=== PATIENT | female | born 1965 | race Caucasian/White ===

== ENCOUNTER 2019-01-18 06:12 | Emergency (ER) | payer BC ==
--- NOTE | 2019-01-18 07:00 | EDM.PDOC ---
ED HPI GENERAL MEDICAL PROBLEM - General Chief Complaint: Chest Pain Stated Complaint: UNCOMFORTABLE ARMS AND CHEST Time Seen by Provider: 01/18/19 06:48 Source of Information: Reports: Patient History Limitations: Reports: No Limitations - History of Present Illness INITIAL COMMENTS - FREE TEXT/NARRATIVE: 53-year-old female with onset of "not feeling well" yesterday morning when she awoke. She reports that she had a slight feeling of indigestion in that she was burping at the time and had malaise. She had no pain at that point. Later on that afternoon she developed pain in her left chest and shoulder and that pain seemed to come and go through the afternoon and was not associated with any activity or any inciting event that she was aware of. It was a burning and aching type pain that was into her left shoulder and left upper back as well. Last night at approximately 10 to 10:30 PM when she was going to bed she had pain that was a burning and aching pain across her upper back and shoulders posteriorly. She also had pain in her left chest and left upper arm. The pain seemed to improve but did not go away and she was able to go to sleep and woke up intermittently through the night with worsenings of pain but was able to go back to sleep each time and then at 5 AM she awoke with pain in her left chest and left shoulder that was worse than before again (she rated it as a 6/10) and that discomfort has been at that level since 5 AM. No nausea or vomiting. No difficulty breathing. She also reports intermittent jaw pain that has been coming and going for some time. No cough. No known will be breathing no abdominal pain. She reports that the pain has been continually present in some form since 10:30 PM last night. There are no other associated signs or symptoms. There are no other modifying factors. 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) mid chest and left arm Pain Score (Numeric/FACES): 6 - Related Data Allergies Allergy/AdvReac Type Severity Reaction Status Date / Time No Known Allergies Allergy Verified 01/18/19 06:34 Home Meds: Home Meds Levothyroxine Sodium [Synthroid] 100 mcg PO DAILY 01/18/19 [History] Omeprazole 40 mg PO ACBREAKFAST #30 cap.sr 01/18/19 [Rx] Past Medical History Endocrine/Metabolic History: Reports: Hypothyroidism - Past Surgical History Endocrine Surgical History: Reports: Thyroidectomy Social & Family History - Family History Cardiac: Reports: Bypass (Father with coronary artery bypass surgery in his 70s) , CAD (Uncle with heart disease beginning in his 50s) - Tobacco Use Smoking Status *Q: Never Smoker - Caffeine Use Caffeine Use: Reports: Tea - Recreational Drug Use Recreational Drug Use: No - Living Situation & Occupation Living situation: Reports: (She is here with her ) 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 No dizziness now.) , Headache (Off-and-on. No headache now.) Hematologic/Lymphatic: Reports: No Symptoms Immunologic: Reports: No Symptoms ED EXAM, GENERAL - Physical Exam Exam: See Below Exam Limited By: No Limitations General Appearance: Alert, WD/WN, Anxious, Mild Distress Eye Exam: Bilateral Eye: EOMI, Normal Inspection, PERRL Ears: Normal External Exam, Hearing Grossly Normal Nose: Normal Inspection, Normal Mucosa, No Blood Throat/Mouth: Normal Inspection, Normal Oropharynx, Normal Voice, No Airway Compromise Head: Atraumatic, Normocephalic Neck: Normal Inspection, Supple, Non-Tender, Full Range of Motion Respiratory/Chest: No Respiratory Distress, Lungs Clear, Normal Breath Sounds, No Accessory Muscle Use, Chest Non-Tender Cardiovascular: Normal Peripheral Pulses, Regular Rate, Rhythm, No JVD Peripheral Pulses: 2+: Radial (L), Radial (R), Dorsalis Pedis (L), Dorsalis Pedis (R) GI/Abdominal: Normal Bowel Sounds, Soft, Non-Tender, No Organomegaly, No Distention Back Exam: Normal Inspection, Other (No tenderness with palpation) Extremities: Normal Inspection, Normal Range of Motion, Non-Tender, No Pedal Edema, Normal Capillary Refill Psychiatric: Normal Affect Skin Exam: Warm, Dry, Intact, Normal Color, No Rash Lymphatic: No Adenopathy EKG INTERPRETATION EKG Date: 01/18/19 Time: 06:22 Rhythm: NSR Rate (Beats/Min): 71 [place]: Normal P-Wave: Present QRS: Normal ST-T: Normal QT: Normal Comparison: NA - No Prior EKG EKG Interpretation Comments: Normal sinus rhythm with a rate of 71. There is a normal axis. There are normal intervals. It is a normal EKG. Course - Vital Signs Last Recorded V/S: Last Vital Signs Temp 36.7 C 01/18/19 06:12 Pulse 78 01/18/19 06:12 Resp 16 01/18/19 06:12 BP 132/73 01/18/19 07:40 Pulse Ox 100 01/18/19 06:12 - Orders/Labs/Meds Orders: Active Orders 24 hr Category Date Time Status EKG Documentation Completion [RC] ASDIRECTED Care 01/18/19 07:11 Active Chest 1V Frontal [CR] Stat Exams 01/18/19 07:10 Taken Nitroglycerin [Nitrostat] Med 01/18/19 07:12 Active 0.4 mg SL Q5M PRN Sodium Chloride 0.9% [Normal Saline] 1,000 ml Med 01/18/19 07:15 Active IV ASDIRECTED Sodium Chloride 0.9% [Saline Flush] Med 01/18/19 07:10 Active 10 ml FLUSH ASDIRECTED PRN Peripheral IV Insertion Adult [OM.PC] Routine Oth 01/18/19 07:10 Ordered EKG 12 Lead [EK] Routine Ther 01/18/19 07:10 Ordered Medication Orders Sodium Chloride (Normal Saline) 1,000 mls @ 0 mls/hr IV ASDIRECTED TANIA Stop: 01/22/19 07:13 Last Admin: 01/18/19 07:36 Dose: 30 mls/hr Nitroglycerin (Nitrostat) 0.4 mg SL Q5M PRN PRN Reason: Chest Pain Last Admin: 01/18/19 07:40 Dose: 0.4 mg Sodium Chloride (Saline Flush) 10 ml FLUSH ASDIRECTED PRN PRN Reason: Keep Vein Open Last Admin: 01/18/19 07:33 Dose: 10 ml Labs: Laboratory Tests 01/18/19 01/18/19 01/18/19 Range/Units 07:17 07:20 07:20 WBC 5.8 (4.5-12.0) X10-3/uL RBC 4.87 (3.23-5.20) x10(6)uL Hgb 14.9 (11.5-15.5) g/dL Hct 44.0 (30.0-51.3) % MCV 90.4 (80-96) fL MCH 30.6 (27.7-33.6) pg MCHC 33.9 (32.2-35.4) g/dL RDW 11.9 (11.5-15.5) % Plt Count 324 (125-369) X10(3)uL MPV 6.9 L (7.4-10.4) fL Neut % (Auto) 57.7 (46-82) % Lymph % (Auto) 25.2 (13-37) % Sunflower % (Auto) 7.0 (4-12) % Eos % (Auto) 9 H (1.0-5.0) % Baso % (Auto) 1 (0-2) % Neut # (Auto) 3.4 (1.6-8.3) # Lymph # (Auto) 1.5 (0.6-5.0) # Sunflower # (Auto) 0.4 (0.0-1.3) # Eos # (Auto) 0.5 (0.0-0.8) # Baso # (Auto) 0.0 (0.0-0.2) # PT (8.7-11.1) INR (0.89-1.13) APTT (24.4-33.2) SECONDS D-Dimer, Quantitative (0.0-0.59) mg/LFEU Sodium 144 (135-145) mmol/L Potassium 4.1 (3.5-5.3) mmol/L Chloride 105 (100-110) mmol/L Carbon Dioxide 29 (21-32) mmol/L BUN 12 (7-18) mg/dL Creatinine 0.8 (0.55-1.02) mg/dL Est Cr Clr Drug Dosing 68.82 mL/min Estimated GFR (MDRD) > 60 (>60) BUN/Creatinine Ratio 15.0 (9-20) Glucose 112 (80-116) mg/dL Calcium 9.6 (8.6-10.2) mg/dL Magnesium 2.0 (1.8-2.5) mg/dL Total Bilirubin 0.3 (0.1-1.3) mg/dL AST 21 (5-25) IU/L ALT 24 (12-36) U/L Alkaline Phosphatase 78 (56-112) IU/L Troponin I (<0.017-0.056) ng/mL Total Protein 8.1 H (6.0-8.0) g/dL Albumin 4.1 (3.5-5.2) g/dL Globulin 4.0 g/dL Albumin/Globulin Ratio 1.0 Urine HCG, Qual Negative (NEGATIVE) 01/18/19 01/18/19 01/18/19 Range/Units 07:20 07:20 09:30 WBC (4.5-12.0) X10-3/uL RBC (3.23-5.20) x10(6)uL Hgb (11.5-15.5) g/dL Hct (30.0-51.3) % MCV (80-96) fL MCH (27.7-33.6) pg MCHC (32.2-35.4) g/dL RDW (11.5-15.5) % Plt Count (125-369) X10(3)uL MPV (7.4-10.4) fL Neut % (Auto) (46-82) % Lymph % (Auto) (13-37) % Sunflower % (Auto) (4-12) % Eos % (Auto) (1.0-5.0) % Baso % (Auto) (0-2) % Neut # (Auto) (1.6-8.3) # Lymph # (Auto) (0.6-5.0) # Sunflower # (Auto) (0.0-1.3) # Eos # (Auto) (0.0-0.8) # Baso # (Auto) (0.0-0.2) # PT 10.0 (8.7-11.1) INR 1.03 (0.89-1.13) APTT 22.6 L (24.4-33.2) SECONDS D-Dimer, Quantitative < 0.19 (0.0-0.59) mg/LFEU Sodium (135-145) mmol/L Potassium (3.5-5.3) mmol/L Chloride (100-110) mmol/L Carbon Dioxide (21-32) mmol/L BUN (7-18) mg/dL Creatinine (0.55-1.02) mg/dL Est Cr Clr Drug Dosing mL/min Estimated GFR (MDRD) (>60) BUN/Creatinine Ratio (9-20) Glucose (80-116) mg/dL Calcium (8.6-10.2) mg/dL Magnesium (1.8-2.5) mg/dL Total Bilirubin (0.1-1.3) mg/dL AST (5-25) IU/L ALT (12-36) U/L Alkaline Phosphatase (56-112) IU/L Troponin I < 0.017 L < 0.017 L (<0.017-0.056) ng/mL Total Protein (6.0-8.0) g/dL Albumin (3.5-5.2) g/dL Globulin g/dL Albumin/Globulin Ratio Urine HCG, Qual (NEGATIVE) Meds: Medications Generic Name Dose Route Start Last Admin Trade Name Freq PRN Reason Stop Dose Admin Sodium Chloride 1,000 mls @ 0 mls/hr 01/18/19 07:15 01/18/19 07:36 Normal Saline IV 01/22/19 07:13 30 mls/hr ASDIRECTED TANIA Administration KVO Nitroglycerin 0.4 mg 01/18/19 07:12 01/18/19 07:40 Nitrostat SL 0.4 mg Q5M PRN Administration Chest Pain Sodium Chloride 10 ml 01/18/19 07:10 01/18/19 07:33 Saline Flush FLUSH 10 ml ASDIRECTED PRN Administration Keep Vein Open Discontinued Medications Generic Name Dose Route Start Last Admin Trade Name Freq PRN Reason Stop Dose Admin Aspirin 324 mg 01/18/19 07:12 01/18/19 07:28 Aspirin PO 01/18/19 07:13 324 mg ONETIME ONE Administration - Radiology Interpretation Free Text/Narrative:: Portable chest x-ray showed no acute disease. - Re-Assessments/Exams Free Text/Narrative Re-Assessment/Exam: 01/18/19 09:07: Patient is essentially discomfort free. Her initial troponin was 0 (it does however represent a 7-8 hour post onset of pain troponin). Her d- dimer was normal. Her chest x-ray was normal. The rest of her blood tests were normal as well. The plan will be to recheck her troponin at 9:30 AM. If that troponin is negative, MS is been ruled out. 01/18/19 10:01: Repeat troponin was negative. Patient is still essentially discomfort free. MS has been ruled out. I am unsure why she is having the chest and shoulder pain. It could be GI in origin (GERD). I am going to place her on a trial of Prilosec and have her follow-up with her primary doctor next week as she will need further testing and probable cardiac risk stratification testing. Departure - Departure Time of Disposition: 10:05 Disposition: Home, Self-Care 01 Condition: Good Clinical Impression: Atypical chest pain, Ruled out for myocardial infarction Prescriptions: Omeprazole 40 mg PO ACBREAKFAST #30 cap.sr Instructions: Nonspecific Chest Pain Referrals: PCP,None [Primary Care Provider] - Forms: ED Department Discharge Additional Instructions: Your blood tests were reassuringly normal. Your EKG was normal. Your chest x- ray was normal. A repeat heart enzyme test was normal. You have not had a heart attack. I think it is unlikely that you have any heart-related problem. I am unsure why you are having the chest pain and shoulder pain. As we discussed, this could be acid reflux causing your symptoms. I am placing you on a trial of omeprazole. You should follow-up with your primary doctor next week for recheck. Back to the emergency department for increasing pain, shortness of breath or any other concerning sign or symptom. - My Orders Last 24 Hours: My Active Orders 01/18/19 07:10 Chest 1V Frontal [CR] Stat Sodium Chloride 0.9% [Saline Flush] 10 ml FLUSH ASDIRECTED PRN Peripheral IV Insertion Adult [OM.PC] Routine EKG 12 Lead [EK] Routine 01/18/19 07:11 EKG Documentation Completion [RC] ASDIRECTED 01/18/19 07:12 Nitroglycerin [Nitrostat] 0.4 mg SL Q5M PRN 01/18/19 07:15 Sodium Chloride 0.9% [Normal Saline] 1,000 ml IV ASDIRECTED - Assessment/Plan Last 24 Hours: My Active Orders 01/18/19 07:10 Chest 1V Frontal [CR] Stat Sodium Chloride 0.9% [Saline Flush] 10 ml FLUSH ASDIRECTED PRN Peripheral IV Insertion Adult [OM.PC] Routine EKG 12 Lead [EK] Routine 01/18/19 07:11 EKG Documentation Completion [RC] ASDIRECTED 01/18/19 07:12 Nitroglycerin [Nitrostat] 0.4 mg SL Q5M PRN 01/18/19 07:15 Sodium Chloride 0.9% [Normal Saline] 1,000 ml IV ASDIRECTED
[2019-01-18] MEDS ORDERED: Sodium Chloride 0.9% 10 ML Syringe FLUSH PRN (07:10)
[2019-01-18] MEDS ORDERED: Aspirin 81 MG Tab.Chew PO ONE (07:12)
[2019-01-18] MEDS ORDERED: Nitroglycerin 0.4 MG Tab.SL SL PRN (07:12)
[2019-01-18] MEDS ORDERED: Sodium Chloride 0.9% 1,000 ML IV SCH (07:15)
== END 2019-01-18 10:53 | disposition home or self-care (01) ==
LOC: FB.ED 06:12
DX: R07.89 Other chest pain (principal); E03.9 Hypothyroidism, unspecified; Z79.899 Other long term (current) drug therapy
CPT/HCPCS: 36415; 71045; 80053; 81025; 83735; 84484; 85025; 85379; 85610; 85730; 93005; 96360; 96361; 99285; A9270; J7030